=== PATIENT | male | born 1945 | race Caucasian/White ===

== ENCOUNTER 2022-12-09 08:44 | Inpatient (IN) | payer MEDICARE, SELFPAY ==
[2022-12-09 13:10] VITALS: BMI 24.5
[2022-12-09] MEDS ORDERED: Ondansetron PF 4 MG/2 ML Vial IVP PRN (13:30)
[2022-12-09] MEDS ORDERED: Ondansetron ODT 4 MG TAB PO PRN (13:30)
[2022-12-09] MEDS ORDERED: Acetaminophen 325 MG TAB PO PRN (13:30)
[2022-12-09] MEDS ORDERED: HumaLOG 300 UNITS/3 ML VIAL SC PRN ×2 (13:31)
[2022-12-09] MEDS ORDERED: Glucagon 1 MG/ML KIT IM PRN (13:31)
[2022-12-09] MEDS ORDERED: Dextrose 5% in Water 1,000 ML IV PRN (13:31)
[2022-12-09] MEDS ORDERED: Dextrose 50% Abboject 50 ML SYRINGE SLOW IVP PRN (13:31)
[2022-12-09 14:37] LABS: Phosphorus 5.3 mg/dL (2.3-4.7)
[2022-12-09 16:56] LABS: HBSAg Index 0.11 S/CO (0-0.99); Hep B Surf Ag Non-Reactive S/CO (NonReactive)
[2022-12-09] MEDS ORDERED: Tuberculin PPD 0.1 ML VIAL I-DERMAL SCH (21:00)
[2022-12-09] MEDS ORDERED: Heparin 10,000 UNITS/ 10 ML VIAL FS PRN (21:53)
[2022-12-10 00:06] LABS: HBSAB Concentration Less than 8.00 mIU/mL; Hep B Core Total Ab Non-Reactive (NonReactive); Hep B Core Total Index 0.09 S/CO (0-0.79); Hep B Surf AB Non-Reactive (NonReactive); Hep C IgG Ab Non-Reactive S/CO (NonReactive); Hep C Index 0.09 S/CO (0-0.79)
[2022-12-10] MEDS: Heparin 5,000 UNITS/ML VIAL SC SCH ×4 (00:06→21:20)
[2022-12-10] MEDS: Famotidine 20 MG TAB PO SCH ×2 (00:06→21:18)
[2022-12-10 05:28] LABS: #Eosinphils 0.1 10x3/uL (0.0-0.5); #Monocytes 0.6 10x3/uL (0.0-1.1); #Neutrophils 3.9 10x3/uL (1.5-8.4); %Basophils 0.6 % (0.0-2.0); %Eosinophils 2.2 % (0.0-6.0); %Lymphocytes 24.9 % (18.0-47.0); %Monocytes 9.1 % (0.0-10.0); %Neutrophils 62.9 % (40.0-75.0); Hematocrit 22.8 % (38.8-50.0); Hemoglobin 7.7 g/dL (13.5-17.5); Mean Corpuscular HGB CONC 33.8 g/dL (32.0-36.0); Mean Corpuscular Hemoglobin 30.9 pg (27.0-33.0); Mean Corpuscular Volume 91.6 fl (81.2-95.1); Mean Platelet Volume 11.4 fl (7.4-10.4); Platelet Count 172 10x3/uL (150-450); RBC Distribution Width 12.4 % (11.5-14.5); Red Blood Cell (RBC) Count 2.49 10x6/uL (4.32-5.72); White Blood Cell (WBC) Count 6.2 10x3/uL (3.5-10.5)
[2022-12-10 05:43] LABS: ALT (SGPT) 13 U/L (8-55); AST (SGOT) 10 U/L (5-34); Albumin 3.4 g/dL (3.4-4.8); Alkaline Phosphatase 44 U/L (40-110); Anion Gap 14 mmol/L (10-20); BUN (Urea Nitrogen) 53 mg/dL (8.4-25.7); Bilirubin, Total 0.3 mg/dL (0.2-1.2); Calc. Creatinine Clearance 11 mL/min (70-130); Calcium 8.7 mg/dL (7.8-10.44); Carbon Dioxide 24 mmol/L (23-31); Chloride 104 mmol/L (98-107); Estimated GFR 9; Globulin 2.3 g/dL (2.4-3.5); Glucose 112 mg/dL (83-110); Magnesium 1.9 mg/dL (1.6-2.6); Potassium 3.7 mmol/L (3.5-5.1); Protein, Total 5.7 g/dL (5.8-8.1); Sodium 138 mmol/L (136-145)
[2022-12-10] MEDS ORDERED: EPOETIN ALFA-EPBX (ESRD) 10,000 UNITS/ML VIAL IVP PRN (09:00)
[2022-12-10] MEDS ORDERED: Epoetin (ESRD) 10,000 UNITS/ML VIAL IVP PRN (10:30)
[2022-12-10] MEDS ORDERED: Nebivolol HCl 5 MG TAB PO SCH (12:15)
[2022-12-10] MEDS ORDERED: Amlodipine 10 MG TAB PO SCH (12:15)
[2022-12-10] MEDS ORDERED: CEFAZOLIN 2 GM in Sodium Chloride 0.9% 100 ML IVPB SCH (18:00)
[2022-12-10] MEDS: Amlodipine 5 MG TAB PO SCH (21:18)
[2022-12-11] MEDS ORDERED: PROPOFOL 20 ML ONE (07:33)
[2022-12-11] MEDS ORDERED: Midazolam HCl 2 mg/2 ml Vial ONE (07:33)
[2022-12-11] MEDS ORDERED: EPINEPHrine 1 MG/ML AMP ONE (08:00)
[2022-12-11] MEDS ORDERED: CEFAZOLIN 2 GM VIAL ONE (08:00)
[2022-12-11] MEDS ORDERED: Bupivacaine 0.25% HCL 30 ML VIAL ONE (08:00)
[2022-12-11] MEDS ORDERED: HYDROcodone/Acetaminophen 5/325 mg Tablet PO PRN (08:52)
[2022-12-11] MEDS ORDERED: Acetaminophen 325 MG TAB PO PRN (08:52)
[2022-12-11] MEDS ORDERED: hydrALAZINE 25 MG TAB PO PRN (12:21)
[2022-12-11] MEDS: Nebivolol HCl 5 MG TAB PO SCH (15:51)
[2022-12-11] MEDS: Amlodipine 5 MG TAB PO SCH ×2 (15:51→20:21)
[2022-12-11] MEDS: Heparin 5,000 UNITS/ML VIAL SC SCH ×3 (15:51→20:25)
[2022-12-11] MEDS: Famotidine 20 MG TAB PO SCH (20:20)
[2022-12-11] MEDS: READ PPD TEST SITE PO SCH (21:00)
[2022-12-12] MEDS ORDERED: hydrALAZINE 20 MG/ML VIAL SLOW IVP SCH (03:45)
[2022-12-12 06:12] LABS: Anion Gap 16 mmol/L (10-20); BUN (Urea Nitrogen) 52 mg/dL (8.4-25.7); Calc. Creatinine Clearance 10 mL/min (70-130); Calcium 9.2 mg/dL (7.8-10.44); Carbon Dioxide 22 mmol/L (23-31); Chloride 103 mmol/L (98-107); Estimated GFR 8; Glucose 112 mg/dL (83-110); Potassium 4.2 mmol/L (3.5-5.1); Sodium 137 mmol/L (136-145)
[2022-12-12] MEDS: Nebivolol HCl 5 MG TAB PO SCH (09:20)
[2022-12-12] MEDS: hydrALAZINE 25 MG TAB PO SCH ×3 (09:20→20:42)
[2022-12-12] MEDS: Heparin 5,000 UNITS/ML VIAL SC SCH ×2 (09:20→16:35)
[2022-12-12] MEDS: Amlodipine 5 MG TAB PO SCH ×2 (09:20→20:43)
[2022-12-12] MEDS ORDERED: Polyethylene Glycol 3350 17 GM Packet PO PRN (10:39)
[2022-12-12] MEDS: Famotidine 20 MG TAB PO SCH (20:41)
[2022-12-12] MEDS: READ PPD TEST SITE PO SCH (21:11)
[2022-12-13 04:26] LABS: #Eosinphils 0.2 10x3/uL (0.0-0.5); #Monocytes 0.7 10x3/uL (0.0-1.1); #Neutrophils 4.3 10x3/uL (1.5-8.4); %Basophils 0.5 % (0.0-2.0); %Eosinophils 3.1 % (0.0-6.0); %Lymphocytes 17.6 % (18.0-47.0); %Monocytes 11.2 % (0.0-10.0); %Neutrophils 67.3 % (40.0-75.0); Hemoglobin 8.1 g/dL (13.5-17.5); Mean Corpuscular HGB CONC 33.8 g/dL (32.0-36.0); Mean Corpuscular Hemoglobin 30.7 pg (27.0-33.0); Mean Corpuscular Volume 90.9 fl (81.2-95.1); Mean Platelet Volume 11.4 fl (7.4-10.4); Platelet Count 172 10x3/uL (150-450); RBC Distribution Width 12.6 % (11.5-14.5); Red Blood Cell (RBC) Count 2.64 10x6/uL (4.32-5.72); White Blood Cell (WBC) Count 6.4 10x3/uL (3.5-10.5)
[2022-12-13 04:41] LABS: Anion Gap 19 mmol/L (10-20); BUN (Urea Nitrogen) 58 mg/dL (8.4-25.7); Calc. Creatinine Clearance 9 mL/min (70-130); Calcium 8.8 mg/dL (7.8-10.44); Carbon Dioxide 20 mmol/L (23-31); Chloride 103 mmol/L (98-107); Estimated GFR 8; Glucose 93 mg/dL (83-110); Potassium 4.2 mmol/L (3.5-5.1); Sodium 138 mmol/L (136-145)
[2022-12-13] MEDS: hydrALAZINE 25 MG TAB PO SCH ×3 (13:10→21:57)
[2022-12-13] MEDS: Nebivolol HCl 5 MG TAB PO SCH (13:12)
[2022-12-13] MEDS: Amlodipine 5 MG TAB PO SCH ×2 (14:20→21:58)
[2022-12-13] MEDS: Famotidine 20 MG TAB PO SCH (21:58)
[2022-12-14 05:07] LABS: #Eosinphils 0.2 10x3/uL (0.0-0.5); #Monocytes 0.7 10x3/uL (0.0-1.1); #Neutrophils 3.7 10x3/uL (1.5-8.4); %Basophils 0.4 % (0.0-2.0); %Eosinophils 2.9 % (0.0-6.0); %Lymphocytes 17.4 % (18.0-47.0); %Monocytes 12.7 % (0.0-10.0); %Neutrophils 66.4 % (40.0-75.0); Hematocrit 25.1 % (38.8-50.0); Hemoglobin 8.7 g/dL (13.5-17.5); Mean Corpuscular HGB CONC 34.7 g/dL (32.0-36.0); Mean Corpuscular Hemoglobin 32.2 pg (27.0-33.0); Mean Platelet Volume 11.2 fl (7.4-10.4); Platelet Count 165 10x3/uL (150-450); RBC Distribution Width 12.8 % (11.5-14.5); White Blood Cell (WBC) Count 5.6 10x3/uL (3.5-10.5)
[2022-12-14 05:18] LABS: Anion Gap 15 mmol/L (10-20); BUN (Urea Nitrogen) 42 mg/dL (8.4-25.7); Calc. Creatinine Clearance 13 mL/min (70-130); Calcium 8.8 mg/dL (7.8-10.44); Carbon Dioxide 25 mmol/L (23-31); Chloride 101 mmol/L (98-107); Estimated GFR 12; Glucose 118 mg/dL (83-110); Potassium 4.3 mmol/L (3.5-5.1); Sodium 137 mmol/L (136-145)
[2022-12-14] MEDS: Nebivolol HCl 5 MG TAB PO SCH (09:01)
[2022-12-14] MEDS: Amlodipine 5 MG TAB PO SCH (09:02)
[2022-12-14] MEDS: hydrALAZINE 25 MG TAB PO SCH (09:02)
[2022-12-14 12:32] VITALS: BP 135/63; TEMP 99.3
== END 2022-12-14 13:11 | disposition home or self-care (01) | DRG 673 ==
LOC: CSHTELE 10:05
PROVIDERS: ADMIT Internal Medicine; ATTEND Internal Medicine
PROC: 06HY33Z Insertion of Infusion Device into Lower Vein, Percutaneous Approach (ICD-10-PCS; principal; 2022-12-09)
PROC: 5A1D70Z Performance of Urinary Filtration, Intermittent, Less than 6 Hours Per Day (ICD-10-PCS; 2022-12-09)
PROC: 0JH60XZ Insertion of Tunneled Vascular Access Device into Chest Subcutaneous Tissue and Fascia, Open Approach (ICD-10-PCS; 2022-12-11)
PROC: 02HV33Z Insertion of Infusion Device into Superior Vena Cava, Percutaneous Approach (ICD-10-PCS; 2022-12-11)
PROC: B5181ZA Fluoroscopy of Superior Vena Cava using Low Osmolar Contrast, Guidance (ICD-10-PCS; 2022-12-11)
DX: I12.0 Hypertensive chronic kidney disease with stage 5 chronic kidney disease or end stage renal disease (principal); J96.01 Acute respiratory failure with hypoxia; N18.6 End stage renal disease; N17.9 Acute kidney failure, unspecified; D63.1 Anemia in chronic kidney disease; E11.22 Type 2 diabetes mellitus with diabetic chronic kidney disease; Z79.899 Other long term (current) drug therapy; Z90.89 Acquired absence of other organs; Z98.890 Other specified postprocedural states; Z82.49 Family history of ischemic heart disease and other diseases of the circulatory system; E83.39 Other disorders of phosphorus metabolism; Z79.01 Long term (current) use of anticoagulants
CPT/HCPCS: 36415; 36416; 71045; 80048; 80053; 83735; 84100; 85025; 86580; 86704; 90935; 94760; C1752; G0257; J0171; J0360; J1644; J2250; J2704; Q4081; Q5105; S0020

== ENCOUNTER 2023-01-08 03:26 | Emergency (ER) | payer MEDICARE ==
[2023-01-08 04:10] LABS: #Eosinphils 0.2 10x3/uL (0.0-0.5); #Monocytes 0.6 10x3/uL (0.0-1.1); #Neutrophils 4.5 10x3/uL (1.5-8.4); %Basophils 0.5 % (0.0-2.0); %Eosinophils 2.5 % (0.0-6.0); %Lymphocytes 14.1 % (18.0-47.0); %Monocytes 9.8 % (0.0-10.0); %Neutrophils 72.8 % (40.0-75.0); Hematocrit 24.5 % (38.8-50.0); Hemoglobin 8.1 g/dL (13.5-17.5); Mean Corpuscular HGB CONC 33.1 g/dL (32.0-36.0); Mean Corpuscular Hemoglobin 31.4 pg (27.0-33.0); Mean Platelet Volume 10.7 fl (7.4-10.4); Platelet Count 178 10x3/uL (150-450); RBC Distribution Width 11.8 % (11.5-14.5); Red Blood Cell (RBC) Count 2.58 10x6/uL (4.32-5.72); White Blood Cell (WBC) Count 6.1 10x3/uL (3.5-10.5)
[2023-01-08 04:23] LABS: ALT (SGPT) 14 U/L (8-55); AST (SGOT) 18 U/L (5-34); Albumin 3.9 g/dL (3.4-4.8); Alkaline Phosphatase 64 U/L (40-110); Anion Gap 17 mmol/L (10-20); BUN (Urea Nitrogen) 35 mg/dL (8.4-25.7); Bilirubin, Total 0.3 mg/dL (0.2-1.2); Calc. Creatinine Clearance 0 mL/min (70-130); Calcium 9.1 mg/dL (7.8-10.44); Carbon Dioxide 26 mmol/L (23-31); Chloride 102 mmol/L (98-107); Estimated GFR 11; Globulin 2.6 g/dL (2.4-3.5); Glucose 123 mg/dL (83-110); Protein, Total 6.5 g/dL (5.8-8.1); Sodium 141 mmol/L (136-145)
== END 2023-01-08 05:40 | disposition home or self-care (01) ==
LOC: CSHERS 03:26
DX: R06.00 Dyspnea, unspecified (principal); I12.0 Hypertensive chronic kidney disease with stage 5 chronic kidney disease or end stage renal disease; E11.22 Type 2 diabetes mellitus with diabetic chronic kidney disease; N18.6 End stage renal disease; Z99.2 Dependence on renal dialysis
CPT/HCPCS: 71045; 80053; 83880; 85025